=== PATIENT | female | born 2000 | race Caucasian/White ===

== ENCOUNTER 2021-10-17 21:46 | Emergency (ER) | payer MEDICAID | END 2021-10-18 01:17 | disposition home or self-care (01) | LOC: CSHERS 21:46 | DX: O26.851 Spotting complicating pregnancy, first trimester (principal); Z87.891 Personal history of nicotine dependence; Z3A.01 Less than 8 weeks gestation of pregnancy | CPT/HCPCS: 36415; 76856; 86900; 86901 ==

== ENCOUNTER 2025-06-11 18:33 | Emergency (ER) | payer MEDICAID, OTHER ==
[2025-06-11 19:51] LABS: Hematocrit 36.4 % (34.9-44.5); Hemoglobin 13.1 g/dL (12.0-15.5); Mean Corpuscular Hemoglobin 31.6 pg (27.0-33.0); Mean Corpuscular Volume 87.9 fL (81.6-98.3); Platelet Count 175 10x3/uL (150-450); Red Blood Cell (RBC) Count 4.14 10x6/uL (3.90-5.03); White Blood Cell (WBC) Count 10.57 10x3/uL (3.5-10.5)
[2025-06-11 19:52] LABS: #Basophils Less than 0.03 10x3/uL (0.0-0.2); #Eosinophils 0.14 10x3/uL (0.0-0.5); #Monocytes 0.50 10x3/uL (0.0-1.1); #Neutrophils 8.80 10x3/uL (1.5-8.4); %Basophils 0.2 % (0.0-2.0); %Eosinophils 1.3 % (0.0-6.0); %Lymphocytes 11.5 % (18.0-47.0); %Monocytes 4.6 % (0.0-10.0); %Neutrophils 81.8 % (40.0-75.0)
[2025-06-11 19:55] LABS: BHCG - Serum Negative (NEGATIVE); Pregs Control Background? CLEAR/WHITE (CLR/WHITE); Pregs Control Bar Appear? YES (CONTROL BAR)
[2025-06-11 20:01] LABS: ALT (SGPT) 13 U/L (Less than 34); AST (SGOT) 18 U/L (11-34); Albumin 4.1 g/dL (3.1-4.5); Alkaline Phosphatase 42 U/L (40-110); Anion Gap 11 mmol/L (10-20); BUN (Urea Nitrogen) 13 mg/dL (7.0-18.7); Bilirubin, Total 1.1 mg/dL (0.3-1.2); Calc. Creatinine Clearance 0 mL/min (70-130); Calcium 8.6 mg/dL (7.8-10.44); Carbon Dioxide 23 mmol/L (22-29); Chloride 112 mmol/L (98-107); Globulin 3.0 g/dL (2.4-3.5); Glucose 73 mg/dL (70-105); Lipase 33 U/L (8-78); Magnesium 2.1 mg/dL (1.6-2.6); Potassium 4.8 mmol/L (3.5-5.1); Sodium 141 mmol/L (136-145)
== END 2025-06-11 21:08 | disposition home or self-care (01) ==
LOC: CSHERS 18:33
DX: R11.2 Nausea with vomiting, unspecified (principal); R19.7 Diarrhea, unspecified; R10.11 Right upper quadrant pain; Z87.891 Personal history of nicotine dependence
CPT/HCPCS: 36415; 76705; 80053; 83690; 83735; 84703; 85025; 96374; J2270